=== PATIENT | female | born 1955 ===

== ENCOUNTER 2017-05-27 12:58 | Emergency (ER) | payer MEDICAID ==
[2017-05-27 13:11] VITALS: TEMP 97; O2SAT 100
[2017-05-27] MEDS: Sodium Chloride 0.9% 1,000 ML IV STA ×2 (13:55→16:33)
[2017-05-27 13:57] LABS: BASO % 0.2 % (0.0-2.0); EOS % 0.1 % (0.0-4.0); HEMATOCRIT 41.6 % (34.0-47.0); LYMPH # 0.5 K/uL (1.0-4.3); LYMPH % 4.1 % (20.0-40.0); MEAN CELL VOLUME 92.9 fl (81.0-99.0); MEAN CORPUSCULAR HEMOGLOBIN 30.5 pg (27.0-31.0); MEAN CORPUSCULAR HGB CONC 32.8 g/dL (33.0-37.0); MEAN PLATELET VOLUME 8.4 fl (7.2-11.7); MONO # 0.6 K/uL (0.0-0.8); MONO % 5.4 % (0.0-10.0); NEUT # 10.8 K/uL (1.8-7.0); NEUT % 90.2 % (50.0-75.0); PLATELET COUNT 270 K/uL (130-400); RED CELL DISTRIBUTION WIDTH 14.6 % (11.5-14.5)
[2017-05-27 14:07] LABS: ALB/GLOB RATIO 1.4 (1.0-2.1); ALKALINE PHOSPHATASE 80 U/L (38-126); ALT/SGPT 40 U/L (9-52); AST/SGOT 32 U/L (14-36); BILIRUBIN,TOTAL 1.2 mg/dl (0.2-1.3); BLOOD UREA NITROGEN 17 mg/dl (7-17); CARBON DIOXIDE 24 mmol/L (22-30); CHLORIDE 102 mmol/L (98-107); GFR AFRICAN-AMERICAN > 60; GLUCOSE,RANDOM 100 mg/dL (65-105); LIPASE 61 U/L (23-300); POTASSIUM 4.1 MMOL/L (3.6-5.0); SODIUM 140 mmol/l (132-148); TOTAL PROTEIN 8.3 G/DL (6.3-8.2)
--- NOTE | 2017-05-27 14:44 | ED PDOC ---
HPI: Abdomen Time Seen by Provider: 05/27/17 13:23 Chief Complaint (Nursing): GI Problem Chief Complaint (Provider): Vomiting and diarrhea History Per: Patient History/Exam Limitations: no limitations Onset/Duration Of Symptoms: Days (x 2) Current Symptoms Are (Timing): Still Present Additional Complaint(s): 62 y/o female with a past medical history of osteoporosis and arthritis, who presents to the ED complaining of vomiting and diarrhea since last night. Reports having multiple episodes of non-bloody vomiting, and watery non-bloody diarrhea. Also complaining of mild epigastric pain and chills but no fever. PMD: Aliyah Vitale Past Medical History Reviewed: Historical Data, Nursing Documentation, Vital Signs Vital Signs: Last Vital Signs Temp 97.0 F L 05/27/17 13:08 Pulse 87 05/27/17 13:08 Resp 16 05/27/17 13:08 BP 97/39 L 05/27/17 13:08 Pulse Ox 100 05/27/17 17:47 - Medical History PMH: Arthritis, Hypercholesterolemia, Hyperthyroidism, Osteoporosis Other PMH: Ulcerative Colitis - Surgical History Surgical History: Cholecystectomy Other surgeries: thyroidectomy, hysterectomy - Family History Family History: States: Unknown Family Hx - Social History Current smoker - smoking cessation education provided: No Alcohol: None Drugs: Denies - Home Medications Home Medications: Ambulatory Orders Medication Instructions Recorded Cyclobenzaprine [Cyclobenzaprine 10 mg PO Q8 PRN #9 tab 12/05/16 HCl] Lidocaine 5% [Lidoderm] 1 ea TD DAILY #5 patch 12/05/16 Naproxen [Naprosyn] 500 mg PO BID PRN #14 tablet 12/05/16 Ondansetron ODT [Zofran ODT] 4 mg PO Q8 PRN #12 odt 05/27/17 - Allergies Allergies/Adverse Reactions: Allergies Allergy/AdvReac Type Severity Reaction Status Date / Time aspirin AdvReac VOMITING Verified 05/27/17 13:08 Review of Systems ROS Statement: Except As Marked, All Systems Reviewed And Found Negative Constitutional: Positive for: Chills. Negative for: Fever Gastrointestinal: Positive for: Nausea, Vomiting, Abdominal Pain (mild epigastric), Diarrhea. Negative for: Hematochezia, Hematemesis Physical Exam - Reviewed Nursing Documentation Reviewed: Yes Vital Signs Reviewed: Yes - Physical Exam Appears: Positive for: Non-toxic, No Acute Distress Head Exam: Positive for: ATRAUMATIC, NORMAL INSPECTION, NORMOCEPHALIC Skin: Positive for: Normal Color, Warm, Dry Eye Exam: Positive for: EOMI, Normal appearance, PERRL Neck: Positive for: Normal, Painless ROM, Supple Cardiovascular/Chest: Positive for: Regular Rate, Rhythm. Negative for: Murmur Respiratory: Positive for: Normal Breath Sounds. Negative for: Accessory Muscle Use Gastrointestinal/Abdominal: Positive for: Soft, Tenderness (mild epigastric tenderness) Back: Positive for: Normal Inspection Extremity: Positive for: Normal ROM, Capillary Refill (< 2 sec). Negative for: Tenderness, Deformity Neurologic/Psych: Positive for: Alert, Oriented. Negative for: Motor/Sensory Deficits - Laboratory Results Result Diagrams: 05/27/17 13:54 05/27/17 13:54 - ECG O2 Sat by Pulse Oximetry: 100 (RA) Pulse Ox Interpretation: Normal - Progress Re-evaluation Time: 17:43 Condition: Re-examined, Improved Medical Decision Making Medical Decision Making: Initial Impression: Vomiting and Diarrhea Differential includes acute gastroenteritis. R/o pancreatitis and gastritis. Time: 13:38 Initial Plan: --CMP --Lipase --CBC --Urine dipstick --Bentyl 10 mg PO --NS IV 1000 ml at 1000 mls/hr --Zofran 4 mg IV --Pending reevaluation and disposition Scribe Attestation: Documented by Whitley Gomez, acting as a scribe for Dulce Lopes MD Provider Scribe Attestation: All medical record entries made by the Scribe were at my direction and personally dictated by me. I have reviewed the chart and agree that the record accurately reflects my personal performance of the history, physical exam, medical decision making, and the department course for this patient. I have also personally directed, reviewed, and agree with the discharge instructions and disposition. Disposition - Clinical Impression Clinical Impression: Vomiting and diarrhea - Patient ED Disposition Is Patient to be Admitted: No Doctor Will See Patient In The: Office Counseled Patient/Family Regarding: Studies Performed, Diagnosis, Need For Followup - Disposition Referrals: [facility] [Outside] Disposition: Routine/Home Disposition Time: 17:44 Condition: GOOD Additional Instructions: Take benadryl for rash. Use calamine baths. Follow up with your PCP in 2-3 days. Prescriptions: Ondansetron ODT [Zofran ODT] 4 mg PO Q8 PRN #12 odt PRN Reason: Nausea/Vomiting Instructions: Gastroenteritis (ED)
[2017-05-27 15:07] LABS: NEUTROPHIL 88 % (42-75); TOTAL CELLS COUNTED 100
[2017-05-27 15:08] LABS: GIANT PLATELETS PRESENT; LARGE PLATELETS PRESENT
[2017-05-27 18:12] VITALS: BP 100/60; PULSE 82; RESP 18
== END 2017-05-27 18:07 | disposition home or self-care (01) ==
LOC: H.ER 12:58
DX: R11.10 Vomiting, unspecified (principal); R19.7 Diarrhea, unspecified; E05.90 Thyrotoxicosis, unspecified without thyrotoxic crisis or storm; M81.0 Age-related osteoporosis without current pathological fracture
CPT/HCPCS: 80053; 83690; 85025; 96374; 99283; J2405; J7040

== ENCOUNTER 2017-10-09 10:35 | Emergency (ER) | payer MEDICAID ==
[2017-10-09 10:45] VITALS: BP 127/70; PULSE 70; RESP 19; TEMP 98.4; O2SAT 99
[2017-10-09] MEDS ORDERED: Albuterol-Ipratrop 3 mg / 0.5 (3 ml) UD INH STA (13:43)
[2017-10-09] MEDS ORDERED: Albuterol-Ipratrop 3 mg / 0.5 (3 ml) UD ONE (13:50)
--- NOTE | 2017-10-09 14:12 | RAD ---
HISTORY: cough COMPARISON: Chest radiograph dated 03/19/2014. TECHNIQUE: Chest PA and lateral FINDINGS: LUNGS: No active pulmonary disease. PLEURA: No significant pleural effusion identified. No pneumothorax apparent. CARDIOVASCULAR: Atherosclerotic aortic calcifications. Cardiomediastinal silhouette within normal limits. OSSEOUS STRUCTURES: Unchanged. VISUALIZED UPPER ABDOMEN: Right upper quadrant surgical clips redemonstrated. . OTHER FINDINGS: None. IMPRESSION: No active disease.
--- NOTE | 2017-10-09 14:29 | ED PDOC ---
HPI: General Adult Time Seen by Provider: 10/09/17 12:09 Chief Complaint (Nursing): Flu-like Symptoms Past Medical History Vital Signs: Last Vital Signs Temp 98.4 F 10/09/17 10:45 Pulse 70 10/09/17 10:45 Resp 19 10/09/17 10:45 BP 127/70 10/09/17 10:45 Pulse Ox 99 10/09/17 10:45 - Medical History PMH: Arthritis, Hypercholesterolemia, Hyperthyroidism, Osteoporosis - Surgical History Surgical History: Cholecystectomy - Family History Family History: States: Unknown Family Hx - Home Medications Home Medications: Ambulatory Orders Medication Instructions Recorded Cyclobenzaprine [Cyclobenzaprine 10 mg PO Q8 PRN #9 tab 12/05/16 HCl] Lidocaine 5% [Lidoderm] 1 ea TD DAILY #5 patch 12/05/16 Naproxen [Naprosyn] 500 mg PO BID PRN #14 tablet 12/05/16 Ondansetron ODT [Zofran ODT] 4 mg PO Q8 PRN #12 odt 05/27/17 Albuterol 0.083% [Albuterol 3 ml IH Q4 #20 neb 10/09/17 Sulfate 3 Ml] Azithromycin [Zithromax] 250 mg PO DAILY #6 tab 10/09/17 Fluticasone Propionate [Flonase] 1 - 2 spr NS TID #1 spr 10/09/17 Mask, Face [Nebulizer Aerosol Mask 1 dev XX PRN PRN #1 dev 10/09/17 Pediatric] Non-Formulary 1 ea XX DAILY #1 ea 10/09/17 Sodium Chloride for Inhalation 4 ml IH DAILY #20 gonzalez 10/09/17 [Sodium Chloride 3% for Inhalation] - Allergies Allergies/Adverse Reactions: Allergies Allergy/AdvReac Type Severity Reaction Status Date / Time aspirin AdvReac VOMITING Verified 10/09/17 11:35 - ECG O2 Sat by Pulse Oximetry: 99 Disposition - Clinical Impression Clinical Impression: Sinusitis - Patient ED Disposition Is Patient to be Admitted: No Counseled Patient/Family Regarding: Studies Performed, Diagnosis, Need For Followup, Rx Given - Disposition Disposition: Routine/Home Disposition Time: 14:25 Condition: STABLE Prescriptions: Albuterol 0.083% [Albuterol Sulfate 3 Ml] 3 ml IH Q4 #20 neb Azithromycin [Zithromax] 250 mg PO DAILY #6 tab Fluticasone Propionate [Flonase] 1 - 2 spr NS TID #1 spr Mask, Face [Nebulizer Aerosol Mask Pediatric] 1 dev XX PRN PRN #1 dev PRN Reason: Cough Non-Formulary 1 ea XX DAILY #1 ea Sodium Chloride for Inhalation [Sodium Chloride 3% for Inhalation] 4 ml IH DAILY #20 gonzalez Instructions: Upper Respiratory Infection (ED), Sinusitis (ED)
== END 2017-10-09 15:06 | disposition home or self-care (01) ==
LOC: H.ER 10:35
DX: J32.9 Chronic sinusitis, unspecified (principal); J06.9 Acute upper respiratory infection, unspecified; E05.90 Thyrotoxicosis, unspecified without thyrotoxic crisis or storm; E78.00 Pure hypercholesterolemia, unspecified; M81.0 Age-related osteoporosis without current pathological fracture

== ENCOUNTER 2018-08-03 11:07 | Emergency (ER) | payer MEDICAID ==
[2018-08-03 11:13] VITALS: BMI 30.4
--- NOTE | 2018-08-03 12:03 | ED PDOC ---
Upper Extremity Pain/Injury Time Seen by Provider: 08/03/18 11:30 Chief Complaint (Provider): neck pain History Per: Patient History/Exam Limitations: no limitations Onset/Duration Of Symptoms: Days (4) Current Symptoms Are (Timing): Still Present Quality: Aching Severity: Severe Exacerbating Factor(s): Other (turning head) Additional Complaint(s): 63 y/o F with hx of HL, hypothyroidism who presents c/o shoulder pain X 4 days. Pt states that she was performing her usual ADLs 4 days ago, when she gradually began having Right ear pain that then went down to her right shoulder. It has persisted despite using Tylenol w/o any relief. She has not wanted to use Ibuprofen b/c she does not want to aggravate her ulcerative colitis. The pain has now gone to her Left shoulder. Denies ear pain currently, SOB, dizziness, C/P, palpitations, visual changes, gait or speech disturbance. Denies trauma or overuse. States that the pain is worse when lowering her shoulders after being raised. Further states that she presented to ER about 2 yrs ago with similar complaint of shoulder pain that improved with muscle relaxer and Toradol injection. Past Medical History Vital Signs: Last Vital Signs Temp 97.4 F L 08/03/18 11:13 Pulse 69 08/03/18 11:13 Resp 17 08/03/18 11:13 BP 170/88 H 08/03/18 11:13 Pulse Ox 99 08/03/18 11:13 - Medical History PMH: Arthritis, Hypercholesterolemia, Hyperthyroidism, Osteoporosis - Surgical History Surgical History: Cholecystectomy - Family History Family History: States: Unknown Family Hx - Social History Current smoker - smoking cessation education provided: No Ex-Smoker (has not smoked in the last 12 months): No Alcohol: None - Home Medications Home Medications: Ambulatory Orders Medication Instructions Recorded Cyclobenzaprine [Cyclobenzaprine 10 mg PO Q8 PRN #9 tab 12/05/16 HCl] Lidocaine 5% [Lidoderm] 1 ea TD DAILY #5 patch 12/05/16 Naproxen [Naprosyn] 500 mg PO BID PRN #14 tablet 12/05/16 Ondansetron ODT [Zofran ODT] 4 mg PO Q8 PRN #12 odt 05/27/17 Albuterol 0.083% [Albuterol 3 ml IH Q4 #20 neb 01/11/18 Sulfate 3 Ml] Azithromycin [Zithromax] 250 mg PO DAILY #6 tab 10/09/17 Fluticasone Propionate [Flonase] 1 - 2 spr NS TID #1 spr 10/09/17 Mask, Face [Nebulizer Aerosol Mask 1 dev XX PRN PRN #1 dev 10/09/17 Pediatric] Non-Formulary 1 ea XX DAILY #1 ea 10/09/17 Sodium Chloride for Inhalation 4 ml IH DAILY #20 gonzalez 10/09/17 [Sodium Chloride 3% for Inhalation] Cyclobenzaprine [Cyclobenzaprine 10 mg PO Q8H PRN 5 Days tab 08/03/18 HCl] - Allergies Allergies/Adverse Reactions: Allergies Allergy/AdvReac Type Severity Reaction Status Date / Time aspirin AdvReac VOMITING Verified 10/09/17 11:35 Review of Systems ROS Statement: Except As Marked, All Systems Reviewed And Found Negative Constitutional: Negative for: Fever, Chills ENT: Positive for: Ear Pain Musculoskeletal: Positive for: Neck Pain, Shoulder Pain (B/L shoulder pain) Neurological: Negative for: Weakness, Numbness, Confusion, Headache, Dizziness Physical Exam - Reviewed Nursing Documentation Reviewed: Yes Vital Signs Reviewed: Yes - Physical Exam Appears: Positive for: Uncomfortable Head Exam: Positive for: ATRAUMATIC Skin: Positive for: Normal Color Eye Exam: Positive for: EOMI, PERRL. Negative for: Periorbital swelling, Conjunctival injection ENT: Positive for: Normal ENT Inspection Neck: Positive for: Limited ROM (tenderness on palpation of base of skull and B/L shoulders, Left > right. ) Cardiovascular/Chest: Positive for: Regular Rate, Rhythm, Chest Non Tender, Other (no bruit b/l) Respiratory: Positive for: Normal Breath Sounds Pulses-Carotid (L): 2+ Pulses-Carotid (R): 2+ Pulses-Radial (L): 2+ Pulses-Radial (R): 2+ Gastrointestinal/Abdominal: Positive for: Normal Exam Back: Positive for: Normal Inspection, Other. Negative for: Vertebral Tenderness Extremity: Positive for: Capillary Refill (normal), Other (normal passive and active flexion and extension of forearm and wrist, pain with passive and active abduction and adduction of B/L shoulders. Point tenderness at acromioclavicular joint on left) Lymphatic: Positive for: Normal Exam Neurologic/Psych: Positive for: Alert, Oriented - ECG O2 Sat by Pulse Oximetry: 99 Medical Decision Making Medical Decision Making: B/L shoulder x-ray Toradol 30mg IM x 1 Flexeril 10mg PO x 1 Recheck BP after meds given BP 159/75 after meds given. B/L shoulder x-ray negative for acute fracture or dislocation, + for DJD. Disposition - Clinical Impression Clinical Impression: Shoulder pain, bilateral - Patient ED Disposition Is Patient to be Admitted: No Counseled Patient/Family Regarding: Studies Performed, Diagnosis, Need For Followup - Disposition Disposition: Routine/Home Disposition Time: 14:34 Condition: STABLE Additional Instructions: F/u with Dr. Jc with further pain. Recommend heating pad applied to area twice daily. use Flexeril as needed. Prescriptions: Cyclobenzaprine [Cyclobenzaprine HCl] 10 mg PO Q8H PRN 5 Days tab PRN Reason: Pain, Moderate (4-7) Forms: [facility] ([place]) Print Language: BRITISH
[2018-08-03 12:29] VITALS: RESP 18
--- NOTE | 2018-08-03 14:33 | RAD ---
Date of service: 08/03/2018 PROCEDURE: Radiographs of both shoulders HISTORY: acute B/L shoulder pain COMPARISON: No prior. FINDINGS: BONES: Diffuse osteopenia suggests osteoporosis bilaterally. No acute fracture or dislocation identified bilaterally. No destructive bony lesion identified either. JOINTS: Symmetric degenerative osteophyte formation is seen on a moderate basis at the bilateral acromioclavicular joints with mild cortical sclerosis at the glenohumeral joints bilaterally. SOFT TISSUES: Right shoulder: Grossly unremarkable. Right shoulder: Grossly unremarkable. OTHER FINDINGS: None. 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 No acute fracture or dislocation bilaterally. Diffuse osteopenia suggests osteoporosis
[2018-08-03 14:34] VITALS: BP 159/75; PULSE 62; TEMP 98.4
[2018-08-03 20:56] VITALS: O2SAT 99
== END 2018-08-03 14:33 | disposition home or self-care (01) ==
LOC: H.ER 11:07
DX: M25.511 Pain in right shoulder (principal); M25.512 Pain in left shoulder; E05.90 Thyrotoxicosis, unspecified without thyrotoxic crisis or storm; Z87.891 Personal history of nicotine dependence; M81.0 Age-related osteoporosis without current pathological fracture
CPT/HCPCS: 73030; 96372; 99283; J1885